=== PATIENT | female | born 1985 | race African-American/Black ===

== ENCOUNTER 2018-06-05 19:33 | Emergency (ER) | payer MEDICAID ==
[~2018-06-05] VITALS: Ht 167.6 cm; Wt 95.0 kg
[2018-06-05] MEDS ORDERED: METHYLPREDNISOLONE SOD SUCC 125 MG/2 ML VIAL IM STA (20:54)
[2018-06-05 22:03] VITALS: BP 135/78
== END 2018-06-05 22:04 | disposition home or self-care (01) ==
LOC: ER 21:05
DX: K08.89 Other specified disorders of teeth and supporting structures (principal); T78.49XA Other allergy, initial encounter; X58.XXXA Exposure to other specified factors, initial encounter
CPT/HCPCS: 81025; 96372; 99283; J2930